=== PATIENT | female | born 1985 | race Caucasian/White ===

== ENCOUNTER 2021-08-02 07:12 | Emergency (ER) | payer BC ==
[2021-08-02 07:52] VITALS: PULSE 94
[2021-08-02] MEDS ORDERED: Sodium Chloride 0.9% 10 ML Syringe FLUSH PRN ×2 (07:58→08:04)
[2021-08-02] MEDS ORDERED: Iopamidol 612 MG/ML 100 ML Bottle IVPUSH ONE (08:04)
--- NOTE | 2021-08-02 08:26 | EDM.PDOC ---
ED HPI GENERAL MEDICAL PROBLEM - General Chief Complaint: ENT Problem Stated Complaint: SWOLLEN NOSE Time Seen by Provider: 08/02/21 07:46 Source of Information: Reports: Patient History Limitations: Reports: No Limitations - History of Present Illness INITIAL COMMENTS - FREE TEXT/NARRATIVE: The patient presents with nose pain and swelling. This started this weekend and it has gotten worse. She did not hit her nose. The pain and swelling is on the bridge of the nose. She has no fever or chills. She has no sinus pressure of runny nose. This has never happened before. She has no trouble breathing, cough, chest pain, abdominal pain, nausea or vomiting. She could not sleep well last night due to the pain. Onset: Gradual Duration: Day(s): (5) Location: Reports: Face (nose) Quality: Reports: Sharp Severity: Moderate Improves with: Reports: None Worsens with: Reports: None Associated Symptoms: Reports: No Other Symptoms - Related Data Allergies Allergy/AdvReac Type Severity Reaction Status Date / Time No Known Allergies Allergy Verified 08/02/21 07:49 Home Meds: Home Meds Hydrocodone/Acetaminophen [Hydrocodone-Acetamin 5-325 mg] 1 - 2 each PO Q6H PRN #15 tablet 08/02/21 [Rx] cephALEXin [Keflex] 500 mg PO QID #40 cap 08/02/21 [Rx] Past Medical History - Past Health History Medical/Surgical History: Denies Medical/Surgical History Dermatologic History: Reports: Other (See Below) Other Dermatologic History: melanoma Social & Family History - Family History Family Medical History: No Pertinent Family History - Tobacco Use Tobacco Use Status *Q: Current Every Day Tobacco User Years of Tobacco use: 10 Packs/Tins Daily: 0.2 - Caffeine Use Caffeine Use: Reports: Coffee - Recreational Drug Use Recreational Drug Use: No ED ROS ENT - Review of Systems Review Of Systems: See Below Constitutional: Reports: No Symptoms HEENT: Reports: Nose Pain Respiratory: Reports: No Symptoms Cardiovascular: Reports: No Symptoms Endocrine: Reports: No Symptoms GI/Abdominal: Reports: No Symptoms : Reports: No Symptoms Musculoskeletal: Reports: No Symptoms ED EXAM, ENT - Physical Exam Exam: See Below Exam Limited By: No Limitations General Appearance: Alert, No Apparent Distress Ears: Normal External Exam Nose: Other (Erythema, pain, and edema to the bridge of the nose. No swelling inside the nose that I can see.) Mouth/Throat: Normal Inspection Head: Atraumatic, Normocephalic Neck: Normal Inspection, Supple, Non-Tender Respiratory/Chest: No Respiratory Distress, Lungs Clear, Normal Breath Sounds Cardiovascular: Regular Rate, Rhythm, No Edema, No Murmur GI/Abdominal: Soft, Non-Tender, No Organomegaly, No Mass Back: Normal Inspection Extremities: Normal Inspection Course - Vital Signs Last Recorded V/S: Last Vital Signs Temp 98.2 F 08/02/21 07:45 Pulse 94 08/02/21 07:45 Resp 14 08/02/21 07:45 BP 140/96 H 08/02/21 07:45 Pulse Ox 98 08/02/21 07:45 - Orders/Labs/Meds Orders: Active Orders 24 hr Category Date Time Status Peripheral IV Care [RC] . DIRECTED Care 08/02/21 07:58 Active CMP [COMPREHENSIVE METABOLIC PN,CMP] [CHEM] Stat Lab 08/02/21 08:07 Received CRP [C-REACTIVE PROTEIN] [CHEM] Stat Lab 08/02/21 08:07 Received Sodium Chloride 0.9% [Saline Flush] Med 08/02/21 07:58 Active 10 ml FLUSH ASDIRECTED PRN Sodium Chloride 0.9% [Saline Flush] Med 08/02/21 08:04 Active 10 ml FLUSH ONETIME PRN Peripheral IV Insertion Adult [OM.PC] Routine Oth 08/02/21 07:58 Ordered Medication Orders Sodium Chloride (Sodium Chloride 0.9% 10 Ml Syringe) 10 ml FLUSH ASDIRECTED PRN PRN Reason: Keep Vein Open Last Admin: 08/02/21 08:07 Dose: 10 ml Documented by: STALIN Sodium Chloride (Sodium Chloride 0.9% 10 Ml Syringe) 10 ml FLUSH ONETIME PRN PRN Reason: IV FLUSH Last Admin: 08/02/21 08:17 Dose: 10 ml Documented by: GUILLERMINA Labs: Laboratory Tests 08/02/21 Range/Units 08:07 WBC 9.50 (3.98-10.04) K/mm3 RBC 4.65 (3.98-5.22) M/mm3 Hgb 14.7 (11.2-15.7) gm/dl Hct 43.9 (34.1-44.9) % MCV 94.4 (79.4-94.8) fl MCH 31.6 (25.6-32.2) pg MCHC 33.5 (32.2-35.5) g/dl RDW Std Deviation 42.3 (36.4-46.3) fL Plt Count 278 (182-369) K/mm3 MPV 9.0 L (9.4-12.3) fl Neut % (Auto) 73.6 H (34.0-71.1) % Lymph % (Auto) 18.2 L (19.3-51.7) % [place] % (Auto) 6.4 (4.7-12.5) % Eos % (Auto) 1.4 (0.7-5.8) Baso % (Auto) 0.2 (0.1-1.2) % Neut # (Auto) 6.99 H (1.56-6.13) K/mm3 Lymph # (Auto) 1.73 (1.18-3.74) K/mm3 [place] # (Auto) 0.61 H (0.24-0.36) K/mm3 Eos # (Auto) 0.13 (0.04-0.36) K/mm3 Baso # (Auto) 0.02 (0.01-0.08) K/mm3 Meds: Medications Generic Name Dose Route Start Last Admin Trade Name Freq PRN Reason Stop Dose Admin Sodium Chloride 10 ml 08/02/21 07:58 08/02/21 08:07 Sodium Chloride 0.9% 10 Ml Syringe FLUSH 10 ml ASDIRECTED PRN Administration Keep Vein Open Sodium Chloride 10 ml 08/02/21 08:04 08/02/21 08:17 Sodium Chloride 0.9% 10 Ml Syringe FLUSH 10 ml ONETIME PRN Administration IV FLUSH Discontinued Medications Generic Name Dose Route Start Last Admin Trade Name Freq PRN Reason Stop Dose Admin Iopamidol 100 ml 08/02/21 08:04 08/02/21 08:17 Iopamidol 612 Mg/Ml 100 Ml Bottle IVPUSH 08/02/21 08:05 100 ml ONETIME ONE Administration - Re-Assessments/Exams Free Text/Narrative Re-Assessment/Exam: 08/02/21 08:25 I ordered an IV saline lock, labs and a CT of her maxillofacial and sinuses. 08/02/21 08:56 Her CBC looks good. Her CT shows slight soft tissue fullness within the nose. Please correlate if this represents cellulitis or other abnormality. No soft tissue abscess is seen. Other findings believed to be incidental. I will get her on some keflex and something for pain. Departure - Departure Time of Disposition: 09:00 Disposition: Home, Self-Care 01 Condition: Good Clinical Impression: Cellulitis of nose - Discharge Information *PRESCRIPTION DRUG MONITORING PROGRAM REVIEWED*: Not Applicable *COPY OF PRESCRIPTION DRUG MONITORING REPORT IN PATIENT JEFFREY: Not Applicable Prescriptions: Hydrocodone/Acetaminophen [Hydrocodone-Acetamin 5-325 mg] 1 - 2 each PO Q6H PRN #15 tablet PRN Reason: Pain cephALEXin [Keflex] 500 mg PO QID #40 cap Referrals: PCP,None [Primary Care Provider] - Forms: ED Department Discharge Additional Instructions: Take the keflex 4 times per day for 10 days. Put warm compresses on your nose for 15 minutes 3 times per day for 3 days. Take tylenol or motrin for pain. If that does not help, try the hydrocodone. Follow up with your provider within a week. Please return if you are worse. Sepsis Event Note (ED) - Evaluation Sepsis Screening Result: No Definite Risk - Focused Exam Vital Signs: Vital Signs Temp Pulse Resp BP Pulse Ox 08/02/21 07:45 98.2 F 94 14 140/96 H 98 - My Orders Last 24 Hours: My Active Orders 08/02/21 07:58 Peripheral IV Care [RC] . DIRECTED Sodium Chloride 0.9% [Saline Flush] 10 ml FLUSH ASDIRECTED PRN Peripheral IV Insertion Adult [OM.PC] Routine 08/02/21 08:04 Sodium Chloride 0.9% [Saline Flush] 10 ml FLUSH ONETIME PRN 08/02/21 08:07 CMP [COMPREHENSIVE METABOLIC PN,CMP] [CHEM] Stat CRP [C-REACTIVE PROTEIN] [CHEM] Stat - Assessment/Plan Last 24 Hours: My Active Orders 08/02/21 07:58 Peripheral IV Care [RC] . DIRECTED Sodium Chloride 0.9% [Saline Flush] 10 ml FLUSH ASDIRECTED PRN Peripheral IV Insertion Adult [OM.PC] Routine 08/02/21 08:04 Sodium Chloride 0.9% [Saline Flush] 10 ml FLUSH ONETIME PRN 08/02/21 08:07 CMP [COMPREHENSIVE METABOLIC PN,CMP] [CHEM] Stat CRP [C-REACTIVE PROTEIN] [CHEM] Stat
--- NOTE | 2021-08-02 08:44 | CT ---
CT maxillofacial Technique: Multiple axial sections through the fat maxillofacial structures were obtained. Intravenous contrast was utilized. Comparison: No prior facial imaging is available. Findings: Minimal mucosal thickening is seen within the left maxillary sinus. Other paranasal sinuses are clear. Nothing acute is seen. Mastoid sinuses show nothing acute. Mild nasal septal deviation is seen. No acute fracture is seen within the facial bones. There is minimal soft tissue thickening within the nose. Please correlate if this is due to mild cellulitis or other abnormality. There are no fluid collections to suggest soft tissue facial abscess. Mild scattered lymph nodes are seen and believed to be within normal limits. Impression: 1. Slight soft tissue fullness within the nose. Please correlate if this represents cellulitis or other abnormality. 2. No soft tissue abscess is seen. 3. Other findings believed to be incidental as noted above. Diagnostic code #3
[2021-08-02 09:21] VITALS: BP 139/74
== END 2021-08-02 09:13 | disposition home or self-care (01) ==
LOC: JD.ED 07:12
DX: J34.0 Abscess, furuncle and carbuncle of nose (principal); Z72.0 Tobacco use
CPT/HCPCS: 36415; 70487; 80053; 85025; 86140; 99284; Q9967